=== PATIENT | female | born 1960 | race Caucasian/White ===

== ENCOUNTER 2017-04-24 09:51 | Outpatient (CLI) | payer MEDICAID ==
--- NOTE | 2017-04-25 16:26 | Mammography Report ---
DIGITAL SCREENING MAMMOGRAM: 04/24/2017 CLINICAL INDICATION: A 56-year-old with history of late childbearing, family history of breast cancer , history of benign biopsies, for screening. COMPARISON: 04/2016. TECHNIQUE: Routine CC and MLO projections were obtained of the breasts. FINDINGS: The breasts again demonstrate heterogeneously dense fibroglandular parenchyma bilaterally. Punctate, typically benign calcifications are present. No suspicious masses, clustered microcalcific ations, or regions of architectural distortion are identified. IMPRESSION: BENIGN FINDINGS. RECOMMENDATION: ROUTINE ANNUAL SCREENING UNLESS OTHERWISE CLINICALLY INDICATED. BIRADS CATEGORY 2-BENIGN FINDINGS. STANDARD QUALIFYING STATEMENTS 1. This examination was reviewed with the aid of Computer-Aided Detection (CAD). 2. A negative or benign imaging report should not delay biopsy if clinically suspicious findings are present. Consider surgical consultation if warranted. More than 5% of cancers are not identified by i maging. 3. Dense breasts may obscure an underlying neoplasm. JOB #: [id number] EXT JOB #:[id number]
== END 2017-04-24 09:52 | disposition home or self-care (01) ==
LOC: DI 09:51
PROVIDERS: ATTEND Nurse Practitioner Family
DX: Z12.31 Encounter for screening mammogram for malignant neoplasm of breast (principal); Z80.3 Family history of malignant neoplasm of breast
CPT/HCPCS: 77067

== ENCOUNTER 2017-04-24 10:03 | Outpatient (CLI) | payer MEDICAID ==
--- NOTE | 2017-04-24 11:06 | XRAY Report ---
EXAM: CERVICAL SPINE RADIOGRAPHY EXAM DATE: 04/24/2017 10:28 AM. CLINICAL HISTORY: CERVICALGIA. COMPARISONS: None. TECHNIQUE: 3 views. FINDINGS: Alignment: No spondylolisthesis or significant scoliosis. Bones: The cervical vertebral bodies and posterior elements are well visualized from the skull base t hrough C7-T1. No fractures or bone lesions. Disks: Disk degenerative changes C4-C5 through C6-C7 with gfhq-zo-atlypyab loss of disk height. Facets: Mild facet arthropathy C7-T1. Soft Tissues: Normal. No prevertebral soft tissue swelling. The visualized lung apices are clear. IMPRESSION: 1. No fracture. 2. Disk degenerative changes C4-C5 through C6-C7 with kinq-sc-adcvvfnk loss of disk height. 3. Mild facet arthropathy C7-T1. [facility] Referring Provider Line: [phone] SITE ID: [id number]
== END 2017-04-24 10:04 | disposition home or self-care (01) ==
LOC: DI 10:03
PROVIDERS: ATTEND Nurse Practitioner Family
DX: M50.321 Other cervical disc degeneration at C4-C5 level (principal); M47.893 Other spondylosis, cervicothoracic region
CPT/HCPCS: 72040

== ENCOUNTER 2018-05-06 08:13 | Outpatient (CLI) | payer MEDICAID ==
--- NOTE | 2018-05-07 09:16 | DEXA Report ---
Reason: POSTMENOPAUSAL, OSTEOPENIA Procedure Date: 05/06/2018 Accession Number: [id number] / [id number] Procedure: DEX - Dexa Spine and/or Hip CPT Code: FULL RESULT: EXAM: Dexa Spine and/or Hip DATE: 05/06/2018 9:27 AM CLINICAL HISTORY: POSTMENOPAUSAL, OSTEOPENIA TECHNIQUE: Dual energy x-ray absorptiometry (DXA) was performed on a [employer] System. Regions measured are the AP Spine, femoral neck, and if needed forearm. COMPARISON: None. In accordance with the International Society for Clinical Densitometry (ISCD) guidelines, data from previous exams may be reanalyzed using current recommendations and techniques. This is done to allow a more accurate basis for comparison with the current study. FINDINGS: The data for the lumbar spine is as follows: BMD (g/cm/cm) T-SCORE Z-SCORE REGION L1 0.836 -2.5 -1.1 L2 0.861 -2.8 -1.5 L3 0.911 -2.4 -1.1 L4 0.960 -2.0 -0.6 TOTAL 0.896 -2.4 -1.0 NOTE: All evaluable vertebrae are used for classification The data for the hip is as follows: BMD (g/cm/cm) T-SCORE Z-SCORE REGION Neck 0.705 -2.4 -1.1 TOTAL 0.688 -2.5 -1.5 NOTE: The femoral neck or total proximal femur, whichever is lowest, is used for classification. * Denotes significant change at the 95% confidence level. Denotes dissimilar scan types or analysis methods. IMPRESSION: THE WHO CLASSIFICATION BASED ON THE INTERNATIONAL REFERENCE STANDARD IS OSTEOPOROSIS. THE FRACTURE RISK IS HIGH. RECOMMENDATION: Patients with diagnosis of osteoporosis or osteopenia should have regular bone mineral density assessment. For those eligible for Medicare, routine testing is allowed once every 2 years. Testing frequency can be increased for patients who have rapidly progressing disease or for those who are receiving medical therapy to restore bone mass. COMMENT: World Health Organization (WHO) definitions for osteoporosis and osteopenia: NORMAL BMD: T-score at -1.0 or higher, fracture risk is low OSTEOPENIA BMD: T-score between -1.0 and -2.5, fracture risk is increased. OSTEOPOROSIS BMD: T-score at -2.5 or lower, fracture risk is high. National Osteoporosis Foundation recommends: 1. Obtain adequate dietary calcium (at least 1200 mg per day) and vitamin D (400-800 international units per day). 2. Participate, as appropriate, in regular weightbearing and muscle-strengthening exercise. 3. Avoid tobacco use and reduce alcohol and caffeine intake. 4. For more detailed information see the website at www.NOF.org.
== END 2018-05-06 08:14 | disposition home or self-care (01) ==
LOC: DI 08:13
PROVIDERS: ATTEND Nurse Practitioner Family
DX: M81.0 Age-related osteoporosis without current pathological fracture (principal); Z78.0 Asymptomatic menopausal state
CPT/HCPCS: 77080

== ENCOUNTER 2018-08-31 09:52 | Outpatient (CLI) | payer MEDICAID ==
[2018-08-31 10:23] LABS: ALBUMIN 4.3 g/dL (3.2-5.5); ALBUMIN/GLOBULIN RATIO 1.4 (1.0-2.2); BILIRUBIN,TOTAL 0.7 mg/dL (0.2-1.0); CALCIUM 8.7 mg/dL (8.5-10.3); CREATININE 0.7 mg/dL (0.4-1.0); TOTAL PROTEIN 7.3 g/dL (6.7-8.2)
[2018-08-31 10:30] LABS: BASOPHILS # (AUTO) 0.1 10^3/uL (0.0-0.1); BASOPHILS % (AUTO) 2.2 %; EOSINOPHILS # (AUTO) 0.1 10^3/uL (0.0-0.7); EOSINOPHILS % (AUTO) 1.6 %; HGB - HEMOGLOBIN 13.7 g/dL (12.0-16.0); LYMPHOCYTES # (AUTO) 1.9 10^3/uL (1.5-3.5); LYMPHOCYTES % (AUTO) 33.3 %; MEAN CORPUSCULAR HEMOGLOBIN 29.8 pg (27.0-31.0); MEAN CORPUSCULAR HGB CONC 33.8 g/dL (32.0-36.0); MEAN CORPUSCULAR VOLUME 88.2 fL (81.0-99.0); MEAN PLATELET VOLUME 8.8 fL (7.9-10.8); MONOCYTES # (AUTO) 0.5 10^3/uL (0.0-1.0); MONOCYTES % (AUTO) 8.6 %; NEUTROPHILS # (AUTO) 3.1 10^3/uL (1.5-6.6); NEUTROPHILS % (AUTO) 54.3 %; PLT - PLATELET COUNT 326 10^3/uL (130-450); RED BLOOD COUNT 4.61 10^6/uL (4.20-5.40); RED CELL DISTRIBUTION WIDTH 14.6 % (12.0-15.0); WHITE BLOOD COUNT 5.7 x10^3/uL (4.8-10.8)
[2018-08-31 11:20] LABS: PLATELET MORPHOLOGY RARE GIANT PLATELETS (NORMAL)
== END 2018-08-31 09:53 | disposition home or self-care (01) ==
LOC: LAB 09:52
PROVIDERS: ATTEND Nurse Practitioner Family
DX: F41.8 Other specified anxiety disorders (principal)
CPT/HCPCS: 36415; 80050

== ENCOUNTER 2018-12-03 15:47 | Emergency (ER) | payer MEDICAID ==
--- NOTE | 2018-12-03 15:58 | ED Physician Documentation ---
History of Present Illness - Stated complaint Stated Complaint: FEMALE - Chief complaint Chief Complaint: General - History obtained from History obtained from: Patient - Additonal information Additional information: Patient is a 58-year-old female presenting with concerns for several days of UTI symptoms of vaginal yeast infection symptoms.Patient reports dysuria without hematuria, as well as vaginal discharge and itchiness. Patient denies other vaginal pain, abdominal pain, but describes bilateral low back pain. No nausea, vomiting, or fever. Patient denies any risks or concerns for STDs, as well as any rash or lesions to the groin.No other improving or worsening factors noted. Review of Systems Constitutional: denies: Fever GI: denies: Abdominal Pain, Nausea, Vomiting, Constipation, Diarrhea : reports: Dysuria. 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, Other Psych: Depression - Past Surgical History Past Surgical History: Yes - Present Medications Home Medications: Ambulatory Orders Medication Instructions Recorded Confirmed Bupropion HCl [Wellbutrin Sr] 150 mg PO BID 12/04/14 12/04/14 Paroxetine HCl [Paxil] 40 mg PO DAILY 12/04/14 12/04/14 Phenazopyridine [Pyridium] 200 mg PO TID 4 Days tablet 12/04/14 Sulfamethoxazole/Trimethoprim 1 each PO BID #14 tablet 12/04/14 [Bactrim Ds Tablet] Ciprofloxacin HCl [Cipro] 500 mg PO BID 7 Days tablet 12/03/18 - Allergies Allergies/Adverse Reactions: Allergies Allergy/AdvReac Type Severity Reaction Status Date / Time No Known Drug Allergies Allergy Verified 12/03/18 15:53 - Social History Does the pt smoke?: No Smoking Status: Never smoker Does the pt drink ETOH?: No Does the pt have substance abuse?: No - Immunizations Immunizations are current?: Yes PD ED PE NORMAL - Vitals Vital signs reviewed: Yes - General General: Alert and oriented X 3, No acute distress, Well developed/nourished - HEENT HEENT: Atraumatic, Moist mucous membranes - Cardiac Cardiac: RRR, No murmur - Respiratory Respiratory: No respiratory distress, Clear bilaterally - Abdomen Abdomen: Soft, Non tender, Non distended - Female Female : Other (External genitalia unremarkable without particular lesions or rashes noted. Small amount of discharge and vaginal opening without odor.) - Back Back: No CVA TTP - Derm Derm: Normal color, Warm and dry, No rash - Extremities Extremities: No deformity, No tenderness to palpate - Neuro Neuro: Alert and oriented X 3, No motor deficit, No sensory deficit - Psych Psych: Normal mood, Normal affect Results - Vitals Vitals: Vital Signs - 24 hr 12/03/18 15:48 Temperature 36.6 C Heart Rate 77 Respiratory 14 Rate Blood Pressure 137/81 H O2 Saturation 98 Oxygen O2 Source Room air - Labs Labs: Laboratory Tests 12/03/18 16:20 Urine Color YELLOW Urine Clarity CLEAR Urine pH 6.0 Ur Specific [place] 1.015 Urine Protein NEGATIVE Urine Glucose (UA) NEGATIVE Urine Ketones NEGATIVE Urine Occult Blood NEGATIVE Urine Nitrite NEGATIVE Urine Bilirubin NEGATIVE Urine Urobilinogen 0.2 (NORMAL) Ur Leukocyte Esterase TRACE H Urine RBC 0-5 Urine WBC 6-10 H Ur Squamous Epith Cells FEW Squamous Urine Bacteria Rare Ur Microscopic Review INDICATED Urine Culture Comments INDICATED PD MEDICAL DECISION MAKING - ED course Complexity details: reviewed results, re-evaluated patient, considered differential, d/w patient ED course: Patient presenting with symptoms concerning for UTI. Patient did complain of lower back pain, but had no CVA tenderness. Given lack of abdominal pain, fever, nausea or vomiting, have lower suspicion for pyelonephritis or ne phrolithiasis, low considered. Do not feel the patient is at high risk for other intra-abdominal pathology at this time. Patient denied vaginal pain or symptoms/risks of STDs. Did external genitalia exam, but do not feel patient requires speculum exam at this time. Do have concern for possible yeast infection based on patient's symptoms, therefore she was treated with Diflucan in the ED. Urinalysis returned questionable for infection, although not florid. Given her symptoms, do feel appropriate to treat with antibiotics. Discussed use of antibiotics for home, return precautions, supportive cares, and follow- up. Patient voiced understanding and is comfortable with discharge plan. Departure - Departure Disposition: 01 Home, Self Care Clinical Impression: Urinary tract infection Qualifiers: Urinary tract infection type: site unspecified Hematuria presence: without hematuria Qualified Code(s): N39.0 - Urinary tract infection, site not specified Condition: Good Instructions: ED UTI Cystitis Female Follow-Up: your,doctor [Other] - Within 3 Days Prescriptions: Ciprofloxacin HCl [Cipro] 500 mg PO BID 7 Days tablet Comments: Please take antibiotic as prescribed to treat bladder infection. Recommend taking antibiotic with small amount of food to avoid upset stomach. Recommend hydration, healthy diet, and follow-up with primary care physician next 2 to 3 days.Return to ED sooner if expands worsening symptoms or have other concerns.
[2018-12-03] MEDS ORDERED: FLUCONAZOLE 100 MG TABLET PO STA (16:06)
[2018-12-03 16:27] LABS: BILIRUBIN,URINE NEGATIVE (NEGATIVE); GLUCOSE, URINE (UA) NEGATIVE (NEGATIVE); KETONES,URINE (UA) NEGATIVE (NEGATIVE); LEUKOCYTE ESTERASE, URINE TRACE (NEGATIVE); NITRITE,URINE NEGATIVE (NEGATIVE); OCCULT BLOOD,URINE NEGATIVE (NEGATIVE); PROTEIN,URINE NEGATIVE (NEGATIVE); UROBILINOGEN,URINE 0.2 (NORMAL) E.U./dL (NORMAL)
[2018-12-03 16:28] LABS: CLARITY,URINE CLEAR (CLEAR)
[2018-12-03 16:37] LABS: BACTERIA,URINE Rare /HPF (None Seen); RBC,URINE 0-5 /HPF (0-5); SQUAMOUS EPITHELIAL CELL,UR FEW Squamous (<= Few)
[2018-12-03 17:02] VITALS: BP 118/71
== END 2018-12-03 17:02 | disposition home or self-care (01) ==
LOC: ED 15:47
DX: N39.0 Urinary tract infection, site not specified (principal); N89.8 Other specified noninflammatory disorders of vagina
CPT/HCPCS: 81001; 87086; 99283; A9270; 81003

== ENCOUNTER 2019-06-21 09:24 | Outpatient (CLI) | payer MEDICAID ==
[2019-06-21 17:17] LABS: BASOPHILS # (AUTO) 0.1 10^3/uL (0.0-0.1); BASOPHILS % (AUTO) 1.1 %; EOSINOPHILS # (AUTO) 0.2 10^3/uL (0.0-0.7); EOSINOPHILS % (AUTO) 2.8 %; HGB - HEMOGLOBIN 14.1 g/dL (12.0-16.0); LYMPHOCYTES # (AUTO) 2.2 10^3/uL (1.5-3.5); LYMPHOCYTES % (AUTO) 34.5 %; MEAN CORPUSCULAR HEMOGLOBIN 29.2 pg (27.0-31.0); MEAN CORPUSCULAR HGB CONC 31.9 g/dL (32.0-36.0); MEAN CORPUSCULAR VOLUME 91.5 fL (81.0-99.0); MEAN PLATELET VOLUME 11.5 fL (7.9-10.8); MONOCYTES # (AUTO) 0.6 10^3/uL (0.0-1.0); MONOCYTES % (AUTO) 8.9 %; NEUTROPHILS # (AUTO) 3.4 10^3/uL (1.5-6.6); NEUTROPHILS % (AUTO) 52.2 %; PLT - PLATELET COUNT 366 10^3/uL (130-450); RED BLOOD COUNT 4.83 10^6/uL (4.20-5.40); RED CELL DISTRIBUTION WIDTH 13.9 % (12.0-15.0); WHITE BLOOD COUNT 6.4 x10^3/uL (4.8-10.8)
[2019-06-21 17:34] LABS: ALBUMIN 4.3 g/dL (3.2-5.5); ALBUMIN/GLOBULIN RATIO 1.4 (1.0-2.2); ALKALINE PHOSPHATASE 55 IU/L (42-121); ALT ALANINE AMINOTRANSFERASE 29 IU/L (10-60); AST ASPARTATE AMINOTRANSFERASE 24 IU/L (10-42); BILIRUBIN,TOTAL 0.5 mg/dL (0.2-1.0); BUN - BLOOD UREA NITROGEN 13 mg/dL (6-20); CALCIUM 9.8 mg/dL (8.5-10.3); CARBON DIOXIDE - CO2 28 mmol/L (21-32); CHLORIDE 102 mmol/L (101-111); CHOL/HDL RATIO 2.6 (<4.4); CHOLESTEROL 249 mg/dL; CREATININE 0.8 mg/dL (0.4-1.0); GFR - MDRD 73 (>89); GLUCOSE 100 mg/dL (70-100); HDL CHOLESTEROL 96 mg/dL; LDL CHOLESTEROL,CALCULATED 144 mg/dL; LDL/HDL RATIO 1.5 (<4.4); SODIUM 137 mmol/L (135-145); TOTAL PROTEIN 7.4 g/dL (6.7-8.2); VLDL CHOLESTEROL 9 mg/dL
[2019-06-21 17:40] LABS: CRP - C-REACTIVE PROTEIN < 1.0 mg/dL (0-1.0)
== END 2019-06-21 09:25 | disposition home or self-care (01) ==
LOC: LAB.S 09:24
PROVIDERS: ATTEND Registered Nurse
DX: M25.40 Effusion, unspecified joint (principal); R07.89 Other chest pain
CPT/HCPCS: 36415; 80050; 80061; 83721; 84439; 86038; 86140

== ENCOUNTER 2019-06-29 10:39 | Emergency (ER) | payer MEDICAID ==
[2019-06-29 11:38] LABS: BASOPHILS # (AUTO) 0.1 10^3/uL (0.0-0.1); BASOPHILS % (AUTO) 0.8 %; EOSINOPHILS # (AUTO) 0.2 10^3/uL (0.0-0.7); EOSINOPHILS % (AUTO) 2.1 %; LYMPHOCYTES % (AUTO) 28.3 %; MEAN CORPUSCULAR HEMOGLOBIN 29.6 pg (27.0-31.0); MEAN CORPUSCULAR HGB CONC 32.6 g/dL (32.0-36.0); MEAN CORPUSCULAR VOLUME 90.7 fL (81.0-99.0); MEAN PLATELET VOLUME 10.7 fL (7.9-10.8); MONOCYTES # (AUTO) 0.6 10^3/uL (0.0-1.0); MONOCYTES % (AUTO) 8.9 %; NEUTROPHILS # (AUTO) 4.3 10^3/uL (1.5-6.6); NEUTROPHILS % (AUTO) 59.5 %; PLT - PLATELET COUNT 346 10^3/uL (130-450); RED BLOOD COUNT 4.73 10^6/uL (4.20-5.40); RED CELL DISTRIBUTION WIDTH 13.5 % (12.0-15.0); WHITE BLOOD COUNT 7.2 x10^3/uL (4.8-10.8)
[2019-06-29 11:57] LABS: ALBUMIN 4.1 g/dL (3.2-5.5); ALBUMIN/GLOBULIN RATIO 1.2 (1.0-2.2); BILIRUBIN,TOTAL 0.7 mg/dL (0.2-1.0); CALCIUM 9.3 mg/dL (8.5-10.3); CREATININE 0.7 mg/dL (0.4-1.0); TOTAL PROTEIN 7.4 g/dL (6.7-8.2)
--- NOTE | 2019-06-29 12:07 | XRAY Report ---
Reason: chest pain Procedure Date: 06/29/2019 Accession Number: [id number] / [id number] Procedure: XR - Chest 2 View X-Ray CPT Code: 32730 Final Report FULL RESULT: EXAM: CHEST RADIOGRAPHY 2 VIEWS EXAM DATE: 06/29/2019. CLINICAL HISTORY: Chest pain. COMPARISON: None. TECHNIQUE: PA and lateral views. FINDINGS: Lungs/Pleura: Normal vasculature. Oval focus of increased opacity in the posterior mid chest visualized on the lateral view. The lungs otherwise appear clear. No pleural fluid or pneumothorax. Mediastinum: Normal cardiac and mediastinal contours. Bones: Normal. IMPRESSION: Small oval region of increased opacity of the posterior mid chest visible only on the lateral view, this could be a small region of atelectasis, pneumonia, or scarring. Recommend follow-up chest radiography in 2-3 weeks for reevaluation. Otherwise normal examination. [facility]
--- NOTE | 2019-06-29 13:28 | ED Physician Documentation ---
History of Present Illness - Stated complaint Stated Complaint: CHEST PX - Chief complaint Chief Complaint: Cardiac - History obtained from History obtained from: Patient (hx of pericarditis and no hx of cad presents with chest pain without syncope.) - History of Present Illness Timing: Other (Pain is been going on for quite some time, many months. It was a heaviness, now its worse and radiating both arms associated with nausea for the and sweats for the last 3 days. She is also been fatigued but that is been ongoing for about 6 months. No shortness of breath, calf pain or pedal edema.) Worsened by: Pain is worse if she lays flat. Review of Systems Ten Systems: 10 systems reviewed and negative Constitutional: reports: Reviewed and negative Eyes: reports: Reviewed and negative Ears: reports: Reviewed and negative Nose: reports: Reviewed and negative Throat: reports: Reviewed and negative Cardiac: reports: Chest pain / pressure, Reviewed and negative Respiratory: reports: Reviewed and negative GI: reports: Reviewed and negative : reports: Reviewed and negative Skin: reports: Reviewed and negative Musculoskeletal: reports: Reviewed and negative Neurologic: reports: Reviewed and negative Psychiatric: reports: Reviewed and negative Endocrine: reports: Reviewed and negative Immunocompromised: reports: Reviewed and negative PD PAST MEDICAL HISTORY - Past Medical History 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: Ovarian 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, Other Psych: Depression - Past Surgical History Past Surgical History: Yes - Present Medications Home Medications: Ambulatory Orders Medication Instructions Recorded Confirmed Bupropion HCl [Wellbutrin Sr] 150 mg PO BID 12/04/14 12/04/14 PARoxetine HCl [Paxil] 40 mg PO DAILY 12/04/14 12/04/14 Phenazopyridine [Pyridium] 200 mg PO TID 4 Days tablet 12/04/14 Sulfamethoxazole/Trimethoprim 1 each PO BID #14 tablet 12/04/14 [Bactrim Ds Tablet] Ciprofloxacin HCl [Cipro] 500 mg PO BID 7 Days tablet 12/03/18 - Allergies Allergies/Adverse Reactions: Allergies Allergy/AdvReac Type Severity Reaction Status Date / Time No Known Drug Allergies Allergy Verified 06/29/19 11:01 - Social History Does the pt smoke?: No Smoking Status: Never smoker Does the pt drink ETOH?: No Does the pt have substance abuse?: No - Immunizations Immunizations are current?: Yes PD ED PE NORMAL - Vitals Vital signs reviewed: Yes - General General: Alert and oriented X 3, No acute distress - HEENT HEENT: PERRL, EOMI - Neck Neck: Supple, no meningeal sign, No bony TTP - Cardiac Cardiac: RRR, No murmur - Respiratory Respiratory: No respiratory distress, Clear bilaterally - Abdomen Abdomen: Non tender - Extremities Extremities: No edema, No calf tenderness / cord - Neuro Neuro: Alert and oriented X 3, Normal speech Results - Vitals Vitals: Vital Signs - 24 hr 06/29/19 06/29/19 06/29/19 10:57 12:59 13:57 Temperature 37 C 36.6 C Heart Rate 61 56 L 60 Respiratory 18 18 16 Rate Blood Pressure 130/70 126/63 137/78 H O2 Saturation 98 100 98 06/29/19 14:29 Temperature Heart Rate 58 L Respiratory 18 Rate Blood Pressure 122/68 O2 Saturation 98 Oxygen O2 Source Nasal cannula - EKG (time done) 1059 Rate: Rate (enter#) (60) Rhythm: NSR [place]: Normal Intervals: Normal NM QRS: Normal Ischemia: Normal ST segments Computer interpretation: Agree with computer - Labs Labs: Laboratory Tests 06/29/19 06/29/19 06/29/19 11:33 11:33 11:33 WBC 7.2 RBC 4.73 Hgb 14.0 Hct 42.9 MCV 90.7 MCH 29.6 MCHC 32.6 RDW 13.5 Plt Count 346 MPV 10.7 Neut # (Auto) 4.3 Lymph # (Auto) 2.0 Gordon # (Auto) 0.6 Eos # (Auto) 0.2 Baso # (Auto) 0.1 Absolute Nucleated RBC 0.00 Nucleated RBC % 0.0 Sodium 135 Potassium 4.2 Chloride 100 L Carbon Dioxide 26 Anion Gap 9.0 BUN 17 Creatinine 0.7 Estimated GFR (MDRD) 85 L Glucose 95 Calcium 9.3 Total Bilirubin 0.7 AST 24 ALT 27 Alkaline Phosphatase 57 Troponin I High Sens 2.5 Total Protein 7.4 Albumin 4.1 Globulin 3.3 Albumin/Globulin Ratio 1.2 Lipase 32 06/29/19 14:08 WBC RBC Hgb Hct MCV MCH MCHC RDW Plt Count MPV Neut # (Auto) Lymph # (Auto) Gordon # (Auto) Eos # (Auto) Baso # (Auto) Absolute Nucleated RBC Nucleated RBC % Sodium Potassium Chloride Carbon Dioxide Anion Gap BUN Creatinine Estimated GFR (MDRD) Glucose Calcium Total Bilirubin AST ALT Alkaline Phosphatase Troponin I High Sens 3.0 Total Protein Albumin Globulin Albumin/Globulin Ratio Lipase - Rads (name of study) 2v chest Radiology: EMP read contemporaneously (Ovoid region of posterior mid chest opacity of unclear etiology) Pulmonary angiogram Radiology: EMP read contemporaneously (Negative) PD MEDICAL DECISION MAKING - ED course ED course: 58-year-old woman with subacute ongoing atypical chest pain, 2 troponins in the department were negative. She had a history of pericarditis and also an abnormal chest x-ray so a CT was done and there was no evidence of a mass nor pericardial effusion. Departure - Departure Disposition: 01 Home, Self Care Clinical Impression: Atypical chest pain Condition: Good Record reviewed to determine appropriate education?: Yes Instructions: ED Chest Pain NonCardiac Comments: Call your doctor to arrange a follow-up appointment, make the next available appointment. In the interim, return anytime if worse or if new symptoms develop.
[2019-06-29] MEDS ORDERED: IOVERSOL 320 100 ML VIAL IVP ONE ×2 (13:36→14:57)
--- NOTE | 2019-06-29 14:52 | CT Report ---
Reason: chest pain Procedure Date: 06/29/2019 Accession Number: [id number] / [id number] Procedure: CT - ANGIO CHEST W/WO CPT Code: Final Report FULL RESULT: EXAM: CT ANGIOGRAM CHEST EXAM DATE: 06/29/2019 02:18 PM. CLINICAL HISTORY: Chest pain. COMPARISON: None. TECHNIQUE: Routine helical imaging was performed through the chest in the pulmonary arterial phase. IV Contrast: OPTI 320 70ML. Reconstructions: Sagittal, coronal, and 3D MIP. In accordance with CT protocol optimization, one or more of the following dose reduction techniques were utilized for this exam: automated exposure control, adjustment of mA and/or KV based on patient size, or use of iterative reconstructive technique. FINDINGS: Pulmonary Arteries: Diagnostic quality: Adequate through the segmental arteries. No evidence for acute or chronic pulmonary emboli. RV/LV is within normal limits. There is no interventricular septal bowing. There is scant reflux of contrast material in the IVC. Lungs/Pleura: Mild bibasilar bronchiectasis. No localized infiltrate, consolidation, effusion, or pneumothorax. Mediastinum: Normal heart size. Trace pericardial effusion. No coronary artery calcifications. No lymphadenopathy. Thoracic Aorta: Unremarkable. Upper Abdomen: Unremarkable. Other: None. IMPRESSION: Normal pulmonary CT angiogram. No pulmonary emboli. [facility]
[2019-06-29 15:03] VITALS: BP 112/78
== END 2019-06-29 15:09 | disposition home or self-care (01) ==
LOC: ED 10:39
DX: R07.89 Other chest pain (principal); R91.8 Other nonspecific abnormal finding of lung field; Z86.79 Personal history of other diseases of the circulatory system
CPT/HCPCS: 36415; 71046; 71275; 80053; 83690; 84484; 85025; 93005; 99284; Q9967

== ENCOUNTER 2019-07-02 18:50 | Outpatient (CLI) | payer MEDICAID ==
--- NOTE | 2019-07-02 21:48 | Ultrasound Report ---
Reason: LEFT LOWER EXTREMITY EDEMA Procedure Date: 07/02/2019 Accession Number: [id number] / [id number] Procedure: US - Duplex Lwr Ext Arterial LT CPT Code: Final Report FULL RESULT: EXAM: LEFT LOWER EXTREMITY ARTERIAL DOPPLER ULTRASOUND EXAM DATE: 07/02/2019 08:19 PM. CLINICAL HISTORY: Left lower extremity edema. COMPARISON: None. TECHNIQUE: Real-time sonographic vascular imaging was performed by the core drilling supervisor, utilizing color-flow, Doppler flow, and spectral analysis. Multiple fuels sales representative static images were saved for review. FINDINGS: Left Leg: REJECT OPENER AND FILLER: PSV 215 cm/sec. Triphasic waveform. Stenosis %. PSFA: PSV 105 cm/sec. Triphasic waveform. MSFA: PSV 92 cm/sec. Triphasic waveform. DSFA: PSV 75 cm/sec. Triphasic waveform. PFA: PSV 80 cm/sec. Monophasic waveform. POP: PSV 78 cm/sec. Triphasic waveform. KRISTAN: PSV 85 cm/sec. Biphasic waveform. RETURNS SUPERVISOR: PSV 66 cm/sec. Biphasic waveform. PER: PSV 53 cm/sec. Biphasic waveform. DPA: PSV 84 cm/sec. Monophasic waveform. IMPRESSION: No evidence for hemodynamically significant stenosis or occlusion. See above. [facility] The call report notification system was initiated by Dr. Mary Barbour at 09:35 PM on 07/02/2019. The above call report findings were discussed with Hannah Gómez by Dr. Mary Barbour at 09:38 PM on 07/02/2019.
== END 2019-07-02 18:51 | disposition home or self-care (01) ==
LOC: DI 18:50
PROVIDERS: ATTEND Registered Nurse
DX: R60.0 Localized edema (principal)

== ENCOUNTER 2019-07-16 07:42 | Outpatient (CLI) | payer MEDICAID | END 2019-07-16 07:43 | disposition home or self-care (01) | LOC: DI 07:42 | PROVIDERS: ATTEND Registered Nurse | DX: R07.89 Other chest pain (principal) | CPT/HCPCS: 93306 ==

== ENCOUNTER 2019-12-21 08:13 | Outpatient (CLI) | payer MEDICAID ==
[2019-12-21 15:41] LABS: BASOPHILS # (AUTO) 0.1 10^3/uL (0.0-0.1); BASOPHILS % (AUTO) 0.9 %; EOSINOPHILS # (AUTO) 0.2 10^3/uL (0.0-0.7); EOSINOPHILS % (AUTO) 2.6 %; HGB - HEMOGLOBIN 14.4 g/dL (12.0-16.0); LYMPHOCYTES # (AUTO) 2.2 10^3/uL (1.5-3.5); MEAN CORPUSCULAR HEMOGLOBIN 29.4 pg (27.0-31.0); MEAN CORPUSCULAR HGB CONC 32.1 g/dL (32.0-36.0); MEAN CORPUSCULAR VOLUME 91.6 fL (81.0-99.0); MEAN PLATELET VOLUME 11.8 fL (7.9-10.8); MONOCYTES # (AUTO) 0.4 10^3/uL (0.0-1.0); NEUTROPHILS % (AUTO) 51.3 %; PLT - PLATELET COUNT 364 10^3/uL (130-450); RED BLOOD COUNT 4.89 10^6/uL (4.20-5.40); RED CELL DISTRIBUTION WIDTH 13.9 % (12.0-15.0); WHITE BLOOD COUNT 5.8 x10^3/uL (4.8-10.8)
[2019-12-21 16:03] LABS: ALBUMIN 4.5 g/dL (3.2-5.5); ALBUMIN/GLOBULIN RATIO 1.4 (1.0-2.2); ALKALINE PHOSPHATASE 63 IU/L (42-121); ALT ALANINE AMINOTRANSFERASE 26 IU/L (10-60); AST ASPARTATE AMINOTRANSFERASE 25 IU/L (10-42); BILIRUBIN,TOTAL 0.8 mg/dL (0.2-1.0); BUN - BLOOD UREA NITROGEN 19 mg/dL (6-20); CALCIUM 9.7 mg/dL (8.5-10.3); CARBON DIOXIDE - CO2 25 mmol/L (21-32); CHLORIDE 101 mmol/L (101-111); CHOL/HDL RATIO 2.5 (<4.4); CHOLESTEROL 231 mg/dL; CREATININE 0.9 mg/dL (0.4-1.0); GLUCOSE 87 mg/dL (70-100); HDL CHOLESTEROL 94 mg/dL; LDL CHOLESTEROL,CALCULATED 128 mg/dL; LDL/HDL RATIO 1.4 (<4.4); SODIUM 136 mmol/L (135-145); TOTAL PROTEIN 7.7 g/dL (6.7-8.2); VLDL CHOLESTEROL 9 mg/dL
[2019-12-21 16:09] LABS: CRP - C-REACTIVE PROTEIN < 1.0 mg/dL (0-1.0)
== END 2019-12-21 08:14 | disposition home or self-care (01) ==
LOC: LAB.S 08:13
PROVIDERS: ATTEND Registered Nurse
DX: R00.2 Palpitations (principal); Z20.828 Contact with and (suspected) exposure to other viral communicable diseases; M25.40 Effusion, unspecified joint; R07.89 Other chest pain
CPT/HCPCS: 36415; 80050; 80061; 83721; 86038; 86140

== ENCOUNTER 2020-01-18 10:05 | Outpatient (CLI) | payer MEDICAID ==
[2020-01-18 15:13] LABS: ALBUMIN 4.3 g/dL (3.2-5.5); ALBUMIN/GLOBULIN RATIO 1.4 (1.0-2.2); ALKALINE PHOSPHATASE 64 IU/L (42-121); ALT ALANINE AMINOTRANSFERASE 26 IU/L (10-60); AST ASPARTATE AMINOTRANSFERASE 22 IU/L (10-42); BILIRUBIN,TOTAL 0.6 mg/dL (0.2-1.0); BUN - BLOOD UREA NITROGEN 15 mg/dL (6-20); CALCIUM 9.4 mg/dL (8.5-10.3); CARBON DIOXIDE - CO2 28 mmol/L (21-32); CHLORIDE 105 mmol/L (101-111); CHOL/HDL RATIO 2.6 (<4.4); CHOLESTEROL 242 mg/dL; CREATININE 0.9 mg/dL (0.4-1.0); GLUCOSE 92 mg/dL (70-100); HDL CHOLESTEROL 92 mg/dL; SODIUM 136 mmol/L (135-145); TOTAL PROTEIN 7.4 g/dL (6.7-8.2)
== END 2020-01-18 10:06 | disposition home or self-care (01) ==
LOC: LAB.S 10:05
PROVIDERS: ATTEND Internal Medicine Cardiovascular Disease
DX: E78.5 Hyperlipidemia, unspecified (principal)
CPT/HCPCS: 36415; 80053; 80061; 83721

== ENCOUNTER 2020-03-07 15:05 | Outpatient (CLI) | payer MEDICAID ==
--- NOTE | 2020-03-08 14:56 | Mammography Report ---
BILATERAL DIGITAL SCREENING MAMMOGRAM 3D/2D: 03/07/2020 CLINICAL: Routine screening. Comparison is made to exams dated: 04/23/2016 mammogram and 04/24/2017 mammogram - [facility]. The tissue of both breasts is heterogeneously dense. This may lower the sensitivity of mammography. No significant masses, calcifications, or other findings are seen in either breast. There has been no significant interval change. IMPRESSION: NEGATIVE There is no mammographic evidence of malignancy. A 1 year screening mammogram is recommended. This exam was interpreted at Station ID: [id number]. NOTE: For mammograms, a report in lay terms will be sent to the patient. Approximately 15% of breast malignancies will not be visualized mammographically. In the management of a palpable breast mass, a negative mammogram must not discourage biopsy of a clinically suspicious lesion. Electronically Signed By: Rock Parker M.D. ar/penrad:03/07/2020 17:23:50 ACR BI-RADS Category 1: Negative 3341F PARENCHYMAL PATTERN: (D) - The breast(s) demonstrate(s) heterogeneously dense fibroglandular nayla espinoza. BI-RADS CATEGORY: (1) - 1 RECOMMENDATION: (ANNUAL) - Recommend routine annual screening mammography. [id number] 1 year screening LATERALITY: (B)
== END 2020-03-07 15:06 | disposition home or self-care (01) ==
LOC: DI 15:05
PROVIDERS: ATTEND Registered Nurse
DX: Z12.31 Encounter for screening mammogram for malignant neoplasm of breast (principal)
CPT/HCPCS: 77063; 77067

== ENCOUNTER 2020-06-17 10:31 | Outpatient (CLI) | payer MEDICAID ==
[2020-06-17 15:37] LABS: ALBUMIN 4.5 g/dL (3.2-5.5); ALBUMIN/GLOBULIN RATIO 1.5 (1.0-2.2); ALKALINE PHOSPHATASE 63 IU/L (42-121); ALT ALANINE AMINOTRANSFERASE 30 IU/L (10-60); AST ASPARTATE AMINOTRANSFERASE 23 IU/L (10-42); BILIRUBIN,TOTAL 0.6 mg/dL (0.2-1.0); BUN - BLOOD UREA NITROGEN 12 mg/dL (6-20); CALCIUM 9.5 mg/dL (8.5-10.3); CARBON DIOXIDE - CO2 28 mmol/L (21-32); CHLORIDE 100 mmol/L (101-111); CHOL/HDL RATIO 2.2 (<4.4); CHOLESTEROL 188 mg/dL; CREATININE 0.7 mg/dL (0.4-1.0); GLUCOSE 94 mg/dL (70-100); HDL CHOLESTEROL 84 mg/dL; LDL CHOLESTEROL,CALCULATED 94 mg/dL; LDL CHOLESTEROL,DIRECT 83 mg/dL; LDL/HDL RATIO 1.1 (<4.4); SODIUM 136 mmol/L (135-145); TOTAL PROTEIN 7.6 g/dL (6.7-8.2); VLDL CHOLESTEROL 10 mg/dL
--- OUTSIDE RECORDS SUMMARY | 2020-06-21 01:50 | EXTERNAL MEDICAL SUMMARY RPT | Continuity of Care Document ---
:1960 Demographics Phone Unavailable Preferred Language Unknown Marital Status Unknown Gnosticist Affiliation Unknown Race Unknown Ethnic Group Unknown Author Organization [facility] Address [address] [place] [address] Phone Care Team Providers Name Role Phone SCRAP SEPARATOR Unavailable Unavailable Katus Unavailable Unavailable Problems date description facility 2020-06-17 10:31 HYPERLIPIDEMIA, UNSPECIFIED [facility] Allergies date description facility BEE POLLEN [facility] DEXMETHYLPHENIDATE HCL [facility] edical Center IBUPROFEN [facility] IODINE [facility] NITROFURANTOIN MONOHYD/M-CRYST [facility] PENICILLIN G [facility] PENICILLINS [facility] PERTUSSIS VACCINE,FLUID [facility] NO KNOWN ALLERGIES [facility] No Known Drug Allergies [facility] Results Social History date description facility [id number]
== END 2020-06-17 10:32 | disposition home or self-care (01) ==
LOC: LAB.S 10:31
PROVIDERS: ATTEND Internal Medicine Cardiovascular Disease
DX: E78.5 Hyperlipidemia, unspecified (principal)
CPT/HCPCS: 36415; 80053; 80061; 83721

== ENCOUNTER 2021-05-02 20:43 | Outpatient (CLI) | payer MEDICAID | END 2021-05-02 20:44 | disposition EMS.NT | LOC: EMS 20:43 | DX: S89.92XA Unspecified injury of left lower leg, initial encounter (principal); W19.XXXA Unspecified fall, initial encounter; Y93.H2 Activity, gardening and landscaping; Y92.008 Other place in unspecified non-institutional (private) residence as the place of occurrence of the external cause ==

== ENCOUNTER 2021-05-02 22:11 | Emergency (ER) | payer MEDICAID ==
[2021-05-02] MEDS ORDERED: HYDROmorphone 1 MG/ML CARPUJECT IVP STA ×2 (22:22→22:57)
[2021-05-02] MEDS ORDERED: KETOROLAC 30 MG/ML VIAL IVP STA (22:23)
[2021-05-02] MEDS ORDERED: LIDOCAINE 1%-EPI 1:100000 20 ML MDV SUBQ STA (22:57)
[2021-05-02] MEDS ORDERED: LIDOCAINE-EPINEPH-TETRACAINE 3 ML SYRINGE TOP STA (22:57)
--- NOTE | 2021-05-02 22:59 | XRAY Report ---
PROCEDURE: Knee 3 View LT INDICATIONS: Fall/injured L knee proximal L leg inner area. TECHNIQUE: 3 views of the left knee(s) were acquired. COMPARISON: None. FINDINGS: Bones: No fractures or dislocations. No suspicious bony lesions. Soft tissues: No joint effusion. No suspicious soft tissue calcifications. IMPRESSION: No evidence acute bony abnormality of the left knee. If clinical suspicion and/or symptoms persist, further assessment with repeat plain films or advanced imaging (e.g., CT, MRI, or bone scan) may be helpful for further assessment. Reviewed by: King Davis MD on 05/02/2021 10:57 PM PST Approved by: King Davis MD on 05/02/2021 10:57 PM PST Station ID: [id number]
[2021-05-02 23:16] VITALS: BP 139/74
[2021-05-02] MEDS ORDERED: oxyCODONE/ACET 5/325 Prepack 4 PO STA (23:46)
--- NOTE | 2021-05-03 00:03 | ED Physician Documentation ---
PD HPI LOWER EXT INJURY - Stated complaint Stated Complaint: LT KNEE PX - Chief complaint Chief Complaint: Trauma Ext - History obtained from History obtained from: Patient - History of Present Illness PD HPI LOW EXT INJURY LOCATION: Left, Knee Type of injury: Twist, Blunt / blow (she states her foot broke through old board on their deck, causing her knee to twist and then side of knee struck the boarding. Pain at the site, and that has increased with increased swelling through afternoon into this evening. Now severe pain with ROm.) Where injury occurred: Home Timing - onset: How many hours ago (8), Today Timing - details: Abrupt onset, Still present (with increasing pain and swelling this evenign.) Improved by: No: Rest Worsened by: Moving Associated symptoms: Swelling, Discolored (getting purple bruised coloring). No: Weakness, Numbness Review of Systems Constitutional: denies: Fever, Chills Cardiac: denies: Chest pain / pressure Respiratory: denies: Dyspnea GI: denies: Abdominal Pain Skin: denies: Abrasion (s), Laceration (s) PD PAST MEDICAL HISTORY - Past Medical History Cardiovascular: None Respiratory: None [employer]: Ovarian cysts, Other Psych: Depression Musculoskeletal: None - Past Surgical History Past Surgical History: Yes - Present Medications Home Medications: Ambulatory Orders Medication Instructions Recorded Confirmed Bupropion HCl [Wellbutrin Sr] 150 mg PO BID 12/04/14 12/04/14 PARoxetine HCl [Paxil] 40 mg PO DAILY 12/04/14 12/04/14 Phenazopyridine [Pyridium] 200 mg PO TID 4 Days tablet 12/04/14 Sulfamethoxazole/Trimethoprim 1 each PO BID #14 tablet 12/04/14 [Bactrim Ds Tablet] Ciprofloxacin HCl [Cipro] 500 mg PO BID 7 Days tablet 12/03/18 - Allergies Allergies/Adverse Reactions: Allergies Allergy/AdvReac Type Severity Reaction Status Date / Time No Known Drug Allergies Allergy Verified 05/02/21 22:22 - Social History Does the pt smoke?: No Smoking Status: Never smoker Does the pt drink ETOH?: No Does the pt have substance abuse?: No - Immunizations Immunizations are current?: Yes PD ED PE NORMAL - Vitals Vital signs reviewed: Yes - General General: Alert and oriented X 3, Well developed/nourished, Other (appears in marked pain with slight ROM of the left knee and with any palpation over the site. ) - HEENT HEENT: Atraumatic - Neck Neck: Supple, no meningeal sign, No bony TTP - Cardiac Cardiac: RRR, No murmur - Respiratory Respiratory: Clear bilaterally, Other (no chestwall tenderrness) - Abdomen Abdomen: Soft, Non tender - Derm Derm: Normal color, Warm and dry - Extremities Extremities: Other (left medial upper lower leg at proximal tibial area with focal tense swelling, marked tenderness and some bruising color. Normal distal pulses and sensation. ) - Neuro Neuro: No motor deficit, No sensory deficit Results - Vitals Vitals: Vital Signs - 24 hr 05/02/21 05/02/21 22:15 23:00 Temperature 36.7 C Heart Rate 89 73 Respiratory 20 16 Rate Blood Pressure 135/118 H 139/74 H O2 Saturation 100 97 Oxygen O2 Source Room air - Rads (name of study) left knee Radiology: Prelim report reviewed (no fractures), See rad report Procedures - General procedure General procedure: Attempted aspiration of the hematoma with topical LET, then lido 1% with epi, using 18 G needle, but only aspirated 15 ml of dark bloody fluid. Presume rest is coagulated hematoma already. But even that little bit of pressure off helped reduce the pain, per patient. PD MEDICAL DECISION MAKING - ED course Complexity details: considered differential (local hematoma with tednerness. Can get xray to ensure no fracture. ), d/w patient Departure - Departure Disposition: 01 Home, Self Care Clinical Impression: Fall through floor, initial encounter, Hematoma Knee contusion Qualifiers: Encounter type: initial encounter Laterality: left Qualified Code(s): S80.02XA - Contusion of left knee, initial encounter Condition: Stable Record reviewed to determine appropriate education?: Yes Instructions: ED Hematoma, ED Sprain Knee Comments: Tex wrap or slight pressure to the area to help decrease swelling. Ice periodically tonight and tomorrow as well. Use Tylenol or ibuprofen as needed for pains and add the oxycodone every 4-6 hours if needed for worse pain. Knee brace to reduce motion and help with comfort and crutches for partial to no weightbearing initially. Progress both weightbearing initially and then range of motion without the crutches and then without the knee brace over the next several days to a week or 2 as tolerated. You will have bruising around the knee area and this will probably show up over several days to week even down to the ankle level through gravity. Recheck if not improved well over the next several days to week. Discharge Date/Time: 05/03/21 00:36
== END 2021-05-03 00:36 | disposition home or self-care (01) ==
LOC: ED 22:11
DX: S80.02XA Contusion of left knee, initial encounter (principal); W13.3XXA Fall through floor, initial encounter; Y92.008 Other place in unspecified non-institutional (private) residence as the place of occurrence of the external cause
CPT/HCPCS: 20610; 73562; 96374; 96376; 99282; 99283; J1170

== ENCOUNTER 2021-05-15 08:00 | Outpatient (CLI) | payer MEDICAID ==
--- NOTE | 2021-05-15 15:06 | XRAY Report ---
PROCEDURE: Knee 3 View LT INDICATIONS: CONTUSION OF LEFT KNEE TECHNIQUE: 3 views of the left knee(s) were acquired. COMPARISON: None. FINDINGS: Bones: No fractures or dislocations. No suspicious bony lesions. Soft tissues: No joint effusion. No suspicious soft tissue calcifications. IMPRESSION: No acute fracture. No osseous lesion. If symptoms and/or clinical suspicion for patholog y continue, further assessment with repeat plain films, or advanced imaging (e.g., CT, MRI, or bone s can) is recommended for further assessment. Reviewed by: Arely Rouse MD on 05/15/2021 3:04 PM PST Approved by: Arely Rouse MD on 05/15/2021 3:04 PM PST Station ID: [id number]
== END 2021-05-15 23:59 | disposition home or self-care (01) ==
LOC: DI.S 08:00
PROVIDERS: ATTEND Emergency Medicine
DX: S80.02XA Contusion of left knee, initial encounter (principal)

== ENCOUNTER 2021-05-29 12:50 | Outpatient (CLI) | payer MEDICAID ==
--- NOTE | 2021-05-29 17:18 | DEXA Report ---
PROCEDURE: Dexa Spine and/or Hip INDICATIONS: POST MENOPAUSAL TECHNIQUE: Dual energy x-ray absorptiometry (DXA) was performed on a [employer] System. Regions measur ed are the AP Spine, femoral neck, and if needed forearm. COMPARISON: DEXA, 04/28/2018. FINDINGS: Lumbar Spine: Bone Mineral Density 0.896 g/cm/cm,T score -2.4 Left Hip: Bone Mineral Density 0.661 g/cm/cm,T score -2.8 Left Femoral Neck: Bone Mineral Density 0.704 g/cm/cm, T score -2.4 (T score greater or equal to -1.0: NORMAL) (T score from -1.1 to -2.4: OSTEOPENIA) (T score less than or equal to -2.5 to: OSTEOPOROSIS) Impression: Based on WHO criteria, the patient is osteoporotic. Compared to the last exam, there is n o statistically significant change. Patients with diagnosis of osteoporosis or osteopenia should have regular bone mineral density assess ment. For those eligible for Medicare, routine testing is allowed once every 2 years. Testing frequ ency can be increased for patients who have rapidly progressing disease or for those who are receivin g medical therapy to restore bone mass. Reviewed by: Mavis Carlos MD on 05/29/2021 5:16 PM PST Approved by: Mavis Carlos MD on 05/29/2021 5:16 PM PST Station ID: [id number]
== END 2021-05-29 12:51 | disposition home or self-care (01) ==
LOC: DI 12:50
PROVIDERS: ATTEND Registered Nurse
DX: M81.0 Age-related osteoporosis without current pathological fracture (principal); Z78.0 Asymptomatic menopausal state

== ENCOUNTER 2021-06-26 12:25 | Outpatient (CLI) | payer MEDICAID ==
--- NOTE | 2021-06-26 16:41 | XRAY Report ---
PROCEDURE: Knee 3 View LT INDICATIONS: LEFT KNEE CONTUSION TECHNIQUE: 3 views of the left knee(s) were acquired. One view of the right knee. Weight-bearing COMPARISON: Left knee radiographs 05/15/2021. FINDINGS: Bones: No fractures or dislocations. No suspicious bony lesions. Soft tissues: No joint effusion. No suspicious soft tissue calcifications. Swelling at the medial aspect of the left knee is decreased. IMPRESSION: No fracture demonstrated. Swelling at the medial aspect of the left knee is decreased. Reviewed by: Claude Gamble MD on 06/26/2021 4:39 PM PST Approved by: Claude Gamble MD on 06/26/2021 4:39 PM PST Station ID: [id number]
== END 2021-06-26 12:26 | disposition home or self-care (01) ==
LOC: DI.WOS 12:25
PROVIDERS: ATTEND Physician Assistant
DX: S80.02XD Contusion of left knee, subsequent encounter (principal)

== ENCOUNTER 2021-08-20 09:07 | Outpatient (CLI) | payer MEDICAID ==
[2021-08-20 15:03] LABS: BASOPHILS # (AUTO) 0.1 10^3/uL (0.0-0.1); BASOPHILS % (AUTO) 1.1 %; EOSINOPHILS # (AUTO) 0.1 10^3/uL (0.0-0.7); HCT - HEMATOCRIT 41.5 % (37.0-47.0); HGB - HEMOGLOBIN 13.5 g/dL (12.0-16.0); LYMPHOCYTES # (AUTO) 2.2 10^3/uL (1.5-3.5); LYMPHOCYTES % (AUTO) 39.7 %; MEAN CORPUSCULAR HEMOGLOBIN 29.3 pg (27.0-31.0); MEAN CORPUSCULAR HGB CONC 32.5 g/dL (32.0-36.0); MEAN PLATELET VOLUME 11.6 fL (7.9-10.8); MONOCYTES # (AUTO) 0.5 10^3/uL (0.0-1.0); NEUTROPHILS # (AUTO) 2.6 10^3/uL (1.5-6.6); PLT - PLATELET COUNT 343 10^3/uL (130-450); RED BLOOD COUNT 4.61 10^6/uL (4.20-5.40); RED CELL DISTRIBUTION WIDTH 13.8 % (12.0-15.0); WHITE BLOOD COUNT 5.5 x10^3/uL (4.8-10.8)
[2021-08-20 16:04] LABS: ALBUMIN 4.4 g/dL (3.2-5.5); ALBUMIN/GLOBULIN RATIO 1.6 (1.0-2.2); ALKALINE PHOSPHATASE 60 IU/L (42-121); ALT ALANINE AMINOTRANSFERASE 29 IU/L (10-60); AST ASPARTATE AMINOTRANSFERASE 26 IU/L (10-42); BILIRUBIN,TOTAL 0.4 mg/dL (0.2-1.0); BUN - BLOOD UREA NITROGEN 20 mg/dL (6-20); CALCIUM 9.4 mg/dL (8.5-10.3); CARBON DIOXIDE - CO2 27 mmol/L (21-32); CHLORIDE 103 mmol/L (101-111); CHOL/HDL RATIO 1.9 (<4.4); CHOLESTEROL 181 mg/dL; CREATININE 0.8 mg/dL (0.4-1.0); GFR - MDRD 73 (>89); GLUCOSE 90 mg/dL (70-100); HDL CHOLESTEROL 95 mg/dL; POTASSIUM 4.2 mmol/L (3.5-5.0); SODIUM 138 mmol/L (135-145); TOTAL PROTEIN 7.1 g/dL (6.7-8.2); TRIGLYCERIDES 27 mg/dL
[2021-08-20 16:06] LABS: THYROID STIMULATING HORMONE 1.13 uIU/mL (0.34-5.60)
== END 2021-08-20 09:08 | disposition home or self-care (01) ==
LOC: LAB.S 09:07
PROVIDERS: ATTEND Registered Nurse
DX: R03.0 Elevated blood-pressure reading, without diagnosis of hypertension (principal); R00.2 Palpitations; Z13.220 Encounter for screening for lipoid disorders; Z13.29 Encounter for screening for other suspected endocrine disorder
CPT/HCPCS: 36415; 80050; 80061; 83721

== ENCOUNTER 2022-07-31 10:59 | Outpatient (CLI) | payer MEDICAID ==
--- NOTE | 2022-08-01 09:09 | Mammography Report ---
BILATERAL DIGITAL SCREENING MAMMOGRAM 3D/2D: 07/31/2022 CLINICAL: Routine screening. Family history of breast cancer. Comparison is made to exams dated: 03/07/2020 mammogram, 04/24/2017 mammogram, and 04/23/2016 mammogr am - [facility]. Both breasts are heterogeneously dense, which may obscure small masses (category c / 51-75% glandular tissue). No significant masses, calcifications, or other findings are seen in either breast. There has been no significant interval change. IMPRESSION: NEGATIVE There is no mammographic evidence of malignancy. A 1 year screening mammogram is recommended. MRI sc reening also recommended due to elevated lifetime risk. Based on Tyrer-Cuzick model (a risk assessment model), the patient's lifetime risk is 25.4% and her 1 0 year risk is 12.0%. If a patient has an elevated risk, a more comprehensive evaluation should be co nsidered and/or a referral to a genetic counselor. The [place] [employer], [employer] [employer], and NCCN Guidelines advise the consideration of Breast MRI as an adjunct to screening mammo graphy in patients whose "Lifetime risk to develop breast cancer" is 20% or higher. This exam was interpreted at Station ID: [id number]. NOTE: For mammograms, a report in lay terms will be sent to the patient. Approximately 15% of breast malignancies will not be visualized mammographically. In the management of a palpable breast mass, a negative mammogram must not discourage biopsy of a clinically suspicious lesion. Electronically Signed By: Gilbert Ventura M.D. lc/:07/31/2022 13:13:18 letter sent: No_Letter ACR BI-RADS Category 1: Negative 3341F PARENCHYMAL PATTERN: (D) - The breast(s) demonstrate(s) heterogeneously dense fibroglandular nayla espinoza. BI-RADS CATEGORY: (1) - 1 RECOMMENDATION: (ANNUAL) - Recommend routine annual screening mammography. [id number] 1 year screening LATERALITY: (B)
== END 2022-07-31 11:00 | disposition home or self-care (01) ==
LOC: DI.S 10:59
PROVIDERS: ATTEND Registered Nurse
DX: Z12.31 Encounter for screening mammogram for malignant neoplasm of breast (principal); Z80.3 Family history of malignant neoplasm of breast

== ENCOUNTER 2022-08-29 08:08 | Outpatient (CLI) | payer MEDICAID ==
[2022-08-29 14:33] LABS: BASOPHILS # (AUTO) 0.1 10^3/uL (0.0-0.1); BASOPHILS % (AUTO) 0.9 %; EOSINOPHILS # (AUTO) 0.2 10^3/uL (0.0-0.7); EOSINOPHILS % (AUTO) 2.6 %; HCT - HEMATOCRIT 44.5 % (37.0-47.0); LYMPHOCYTES % (AUTO) 31.1 %; MEAN CORPUSCULAR HEMOGLOBIN 29.4 pg (27.0-31.0); MEAN CORPUSCULAR HGB CONC 31.5 g/dL (32.0-36.0); MEAN CORPUSCULAR VOLUME 93.3 fL (81.0-99.0); MEAN PLATELET VOLUME 11.7 fL (7.9-10.8); MONOCYTES # (AUTO) 0.6 10^3/uL (0.0-1.0); MONOCYTES % (AUTO) 8.4 %; NEUTROPHILS # (AUTO) 3.7 10^3/uL (1.5-6.6); NEUTROPHILS % (AUTO) 56.7 %; PLT - PLATELET COUNT 372 10^3/uL (130-450); RED BLOOD COUNT 4.77 10^6/uL (4.20-5.40); RED CELL DISTRIBUTION WIDTH 13.7 % (12.0-15.0); WHITE BLOOD COUNT 6.5 x10^3/uL (4.8-10.8)
[2022-08-29 14:59] LABS: THYROID STIMULATING HORMONE 1.6 uIU/mL (0.34-5.60)
[2022-08-29 15:05] LABS: ALBUMIN 3.9 g/dL (3.2-5.5); ALBUMIN/GLOBULIN RATIO 1.2 (1.0-2.2); ALKALINE PHOSPHATASE 60 IU/L (42-121); ALT ALANINE AMINOTRANSFERASE 24 IU/L (10-60); AST ASPARTATE AMINOTRANSFERASE 25 IU/L (10-42); BILIRUBIN,TOTAL 0.6 mg/dL (0.2-1.0); BUN - BLOOD UREA NITROGEN 16 mg/dL (6-20); CALCIUM 9.5 mg/dL (8.5-10.3); CARBON DIOXIDE - CO2 27 mmol/L (21-32); CHLORIDE 106 mmol/L (101-111); CHOL/HDL RATIO 2.2 (<4.4); CHOLESTEROL 172 mg/dL; CREATININE 0.9 mg/dL (0.4-1.0); GFR - MDRD 63 (>89); GLUCOSE 85 mg/dL (70-100); HDL CHOLESTEROL 77 mg/dL; POTASSIUM 4.5 mmol/L (3.5-5.0); SODIUM 139 mmol/L (135-145); TOTAL PROTEIN 7.2 g/dL (6.7-8.2); TRIGLYCERIDES 36 mg/dL
== END 2022-08-29 08:09 | disposition home or self-care (01) ==
LOC: LAB.S 08:08
PROVIDERS: ATTEND Registered Nurse
DX: Z79.899 Other long term (current) drug therapy (principal); Z13.220 Encounter for screening for lipoid disorders; Z13.29 Encounter for screening for other suspected endocrine disorder
CPT/HCPCS: 36415; 80050; 80061; 83721

== ENCOUNTER 2022-10-24 12:55 | Outpatient (CLI) | payer MEDICAID ==
--- NOTE | 2022-10-25 10:25 | XRAY Report ---
PROCEDURE: Knee 2 View LT INDICATIONS: KNEE PAIN, LEFT TECHNIQUE: 2 views of the left knee(s) were acquired. COMPARISON: X-ray left knee, 3 views, 05/15/2021. FINDINGS: Bones: No fractures or dislocations. No suspicious bony lesions. Mild tricompartmental knee joint degeneration. Soft tissues: No knee joint effusion. No suspicious soft tissue calcifications or masses. Prepatell ar soft tissue swelling. IMPRESSION: 1. No acute bony abnormality. If clinical symptoms persist or there is high clinical suspicion for in ternal derangement, consider MRI for follow-up. 2. Mild degenerative joint disease. 3. Prepatellar soft tissue swelling. Reviewed by: Mavis Carlos MD on 10/25/2022 10:24 AM PDT Approved by: Mavis Carlos MD on 10/25/2022 10:24 AM PDT Station ID: [id number]
--- NOTE | 2022-10-25 10:33 | XRAY Report ---
PROCEDURE: Lumbar Spine 2 View INDICATIONS: HIP PAIN TECHNIQUE: 2 views of the lumbar spine were acquired. COMPARISON: None. FINDINGS: Bones: 5 [id number] vertebrae are present. There is grade 1-2 anterolisthesis of L4 on L5. No vertebral body compression fractures. No suspicious bony lesions. Moderate degenerative disc disea se at L4-L5. Moderate facet arthropathy at the L3-L4, L4-L5 and L5-S1. Soft tissues: Overlying bowel gas pattern is normal. No suspicious soft tissue calcifications. The re are multiple surgical clips in pelvis. IMPRESSION: 1. Moderate degenerative disc and facet disease. 2. Grade 1-2 anterolisthesis of L4 on L5. Reviewed by: Mavis Carlos MD on 10/25/2022 10:31 AM PDT Approved by: Mavis Carlos MD on 10/25/2022 10:31 AM PDT Station ID: [id number]
== END 2022-10-24 12:56 | disposition home or self-care (01) ==
LOC: DI 12:55
PROVIDERS: ATTEND Registered Nurse
DX: M17.12 Unilateral primary osteoarthritis, left knee (principal); R22.42 Localized swelling, mass and lump, left lower limb; M47.816 Spondylosis without myelopathy or radiculopathy, lumbar region; M47.817 Spondylosis without myelopathy or radiculopathy, lumbosacral region; M51.36 Other intervertebral disc degeneration, lumbar region; M51.37 Other intervertebral disc degeneration, lumbosacral region; M43.16 Spondylolisthesis, lumbar region

== ENCOUNTER 2022-11-09 08:00 | Outpatient (CLI) | payer MEDICAID ==
[2022-11-09 18:41] LABS: BILIRUBIN,URINE NEGATIVE (NEGATIVE); GLUCOSE, URINE (UA) NEGATIVE (NEGATIVE); KETONES,URINE (UA) NEGATIVE (NEGATIVE); LEUKOCYTE ESTERASE, URINE NEGATIVE (NEGATIVE); NITRITE,URINE NEGATIVE (NEGATIVE); OCCULT BLOOD,URINE NEGATIVE (NEGATIVE); PH,URINE 5.5 PH (5.0-7.5); PROTEIN,URINE NEGATIVE (NEGATIVE); UROBILINOGEN,URINE 0.2 (NORMAL) E.U./dL (NORMAL)
[2022-11-09 18:51] LABS: CLARITY,URINE CLEAR (CLEAR)
[2022-11-09 19:33] LABS: BACTERIA,URINE Rare /HPF (None Seen); RBC,URINE 0-5 /HPF (0-5); SQUAMOUS EPITHELIAL CELL,UR RARE Squamous (<= Few); WBC,URINE 0-3 /HPF (0-5)
== END 2022-11-09 23:59 | disposition home or self-care (01) ==
LOC: LAB.S 08:00
PROVIDERS: ATTEND Emergency Medicine
DX: R30.0 Dysuria (principal)
CPT/HCPCS: 81001; 87086

== ENCOUNTER 2023-03-14 12:29 | Day surgery (SDC) | payer MEDICAID ==
[2023-03-14] MEDS ORDERED: LACTATED RINGERS 1,000 ML IV ONE (12:50)
--- NOTE | 2023-03-14 12:56 | ANESTHESIA ---
Pre-Anesthesia VS, & Labs - Diagnosis screening - Procedure colonoscopy Height: 5 ft 3 in - NPO >8 hours - Is Patient ?: No - Lab Results Lab results reviewed: Yes Home Medications and Allergies Bupropion HCl [Wellbutrin Sr] 150 mg PO BID 12/04/14 PARoxetine HCL [Paxil] 40 mg PO DAILY 12/04/14 Allergies/Adverse Reactions: Allergies Allergy/AdvReac Type Severity Reaction Status Date / Time No Known Drug Allergies Allergy Verified 05/02/21 22:22 Anes History & Medical History - Anesthetic History Anesthesia Complications: reports: No previous complications Family history of Anesthesia Complications: Denies Family history of Malignant Hyperthermia: Denies - Medical History Cardiovascular: reports: None Pulmonary: reports: None Gastrointestinal: reports: None Urinary: reports: None Neuro: reports: None Musculoskeletal: reports: None Endocrine/Autoimmune: reports: None Blood Disorders: reports: None Skin: reports: None Smoking Status: Never smoker Psychosocial: reports: No issues indicated Exam General: Alert, Oriented x3, Cooperative Dental: WNL Mouth Openin Fingerbreadth Neck Mobility: Normal Mallampati classification: II Thyromental Distance: 4-6 cm Respiratory: Lungs clear Cardiovascular: Regular rate Plan Anesthesia Type: General, MAC Consent for Procedure(s) Verified and Reviewed: Yes Code Status: Attempt Resuscitation ASA classification: 1-Healthy patient Is this case an emergency?: No
[2023-03-14] MEDS ORDERED: PROPOFOL 500 MG/50 ML 500 MG/50 ML VIAL ONE (13:46)
[2023-03-14] MEDS ORDERED: LACTATED RINGERS 500 ML IV ONE ×2 (14:55)
[2023-03-14 15:30] VITALS: BP 119/67; O2SAT 98
--- NOTE | 2023-03-15 13:30 | ANESTHESIA POST OP EVALUATION ---
Anesthesia Post Eval - Post Anesthesia Eval Vitals: Last Vital Signs Temp 36.4 C L 03/14/23 15:24 Pulse 68 03/14/23 15:24 Resp 16 03/14/23 15:24 BP 119/67 03/14/23 15:24 Pulse Ox 98 03/14/23 15:24 O2 Flow Rate CV Function Including HR & BP: Stable Pain Control: Satisfactory Nausea & Vomiting: Negative Mental Status: Baseline Respiratory Status: Airway Patent Hydration Status: Satisfactory Anesthesia Complications: None
== END 2023-03-14 12:30 | disposition home or self-care (01) ==
LOC: SDS 12:29
PROVIDERS: ATTEND Surgery
PROC: 0DBL8ZZ Excision of Transverse Colon, Via Natural or Artificial Opening Endoscopic (ICD-10-PCS; principal; 2023-03-14 13:45)
DX: Z12.11 Encounter for screening for malignant neoplasm of colon (principal); K63.5 Polyp of colon; K57.30 Diverticulosis of large intestine without perforation or abscess without bleeding
CPT/HCPCS: 45380; J7120

== ENCOUNTER 2023-09-05 10:34 | Outpatient (CLI) | payer MEDICAID ==
[2023-09-05 16:10] LABS: BASOPHILS # (AUTO) 0.1 10^3/uL (0.0-0.1); BASOPHILS % (AUTO) 1.4 %; EOSINOPHILS # (AUTO) 0.7 10^3/uL (0.0-0.7); EOSINOPHILS % (AUTO) 8.7 %; HCT - HEMATOCRIT 45.7 % (37.0-47.0); HGB - HEMOGLOBIN 14.2 g/dL (12.0-16.0); LYMPHOCYTES # (AUTO) 3.1 10^3/uL (1.5-3.5); LYMPHOCYTES % (AUTO) 39.6 %; MEAN CORPUSCULAR HEMOGLOBIN 28.7 pg (27.0-31.0); MEAN CORPUSCULAR HGB CONC 31.1 g/dL (32.0-36.0); MEAN CORPUSCULAR VOLUME 92.5 fL (81.0-99.0); MEAN PLATELET VOLUME 11.7 fL (7.9-10.8); MONOCYTES # (AUTO) 0.6 10^3/uL (0.0-1.0); MONOCYTES % (AUTO) 7.7 %; NEUTROPHILS # (AUTO) 3.3 10^3/uL (1.5-6.6); NEUTROPHILS % (AUTO) 42.5 %; PLT - PLATELET COUNT 336 10^3/uL (130-450); RED BLOOD COUNT 4.94 10^6/uL (4.20-5.40); RED CELL DISTRIBUTION WIDTH 14.3 % (12.0-15.0); WHITE BLOOD COUNT 7.8 x10^3/uL (4.8-10.8)
[2023-09-05 16:59] LABS: THYROID STIMULATING HORMONE 1.21 uIU/mL (0.34-5.60)
[2023-09-05 17:04] LABS: ALBUMIN 4.3 g/dL (3.2-5.5); ALBUMIN/GLOBULIN RATIO 1.6 (1.0-2.2); ALKALINE PHOSPHATASE 74 IU/L (42-121); ALT ALANINE AMINOTRANSFERASE 23 IU/L (10-60); AST ASPARTATE AMINOTRANSFERASE 24 IU/L (10-42); BILIRUBIN,TOTAL 0.4 mg/dL (0.2-1.0); BUN - BLOOD UREA NITROGEN 18 mg/dL (6-20); CALCIUM 10.2 mg/dL (8.5-10.3); CARBON DIOXIDE - CO2 27 mmol/L (21-32); CHLORIDE 106 mmol/L (101-111); CHOLESTEROL 150 mg/dL; CREATININE 0.8 mg/dL (0.6-1.3); GFR - MDRD 72 (>89); GLUCOSE 79 mg/dL (74-104); HDL CHOLESTEROL 75 mg/dL; LDL CHOLESTEROL,CALCULATED 65 mg/dL; LDL/HDL RATIO 0.9 (<4.4); POTASSIUM 4.5 mmol/L (3.5-4.5); SODIUM 137 mmol/L (135-145); TRIGLYCERIDES 48 mg/dL (48-352); VLDL CHOLESTEROL 10 mg/dL
== END 2023-09-05 10:35 | disposition home or self-care (01) ==
LOC: LAB.S 10:34
PROVIDERS: ATTEND Registered Nurse
DX: Z13.228 Encounter for screening for other metabolic disorders (principal); Z13.220 Encounter for screening for lipoid disorders; Z13.29 Encounter for screening for other suspected endocrine disorder; Z13.0 Encounter for screening for diseases of the blood and blood-forming organs and certain disorders involving the immune mechanism
CPT/HCPCS: 36415; 80050; 80061; 83721